=== PATIENT | male | born 1950 | race Two or more races ===

== ENCOUNTER 2021-01-25 08:00 | Outpatient (CLI) | payer OTHER | END 2021-01-25 08:05 | disposition home or self-care (01) | LOC: PPH VACUNA 08:00 | PROVIDERS: ATTEND Emergency Medicine Pediatric Emergency Medicine | DX: Z23 Encounter for immunization (principal) ==

== ENCOUNTER 2021-03-01 08:59 | Emergency (ER) | payer OTHER ==
[~2021-03-01] VITALS: Ht 167.6 cm; Wt 76.7 kg
[2021-03-01] MEDS ORDERED: RAMIPRIL5 MG PO (09:14)
[2021-03-01] MEDS ORDERED: MONDOXYNE NL100 MG PO (12:41)
[2021-03-01] MEDS ORDERED: HIBICLENS118 ML TOP (12:41)
== END 2021-03-01 13:17 | disposition home or self-care (01) ==
LOC: ER 08:59
DX: L02.211 Cutaneous abscess of abdominal wall (principal); L03.311 Cellulitis of abdominal wall; T78.49XA Other allergy, initial encounter; S30.861A Insect bite (nonvenomous) of abdominal wall, initial encounter; B95.61 Methicillin susceptible Staphylococcus aureus infection as the cause of diseases classified elsewhere; B96.89 Other specified bacterial agents as the cause of diseases classified elsewhere; W57.XXXA Bitten or stung by nonvenomous insect and other nonvenomous arthropods, initial encounter; Y93.89 Activity, other specified; Y92.89 Other specified places as the place of occurrence of the external cause; Y99.8 Other external cause status

== ENCOUNTER 2022-06-29 06:43 | Outpatient (CLI) | payer OTHER ==
[~2022-06-29 06:43] MED LIST: CIPRO500 MG PO; DICLOFENAC POTA50 MG PO; HIBICLENS118 ML TOP; MONDOXYNE NL100 MG PO; PROTONIX40 MG PO; RAMIPRIL5 MG PO
== END 2022-06-29 06:49 | disposition home or self-care (01) ==
LOC: LAB 06:43
PROVIDERS: ATTEND General Practice
DX: E78.2 Mixed hyperlipidemia (principal); N42.9 Disorder of prostate, unspecified; E21.1 Secondary hyperparathyroidism, not elsewhere classified; N39.9 Disorder of urinary system, unspecified; E11.69 Type 2 diabetes mellitus with other specified complication; N18.30 Chronic kidney disease, stage 3 unspecified; Z12.13 Encounter for screening for malignant neoplasm of small intestine; Z12.11 Encounter for screening for malignant neoplasm of colon

== ENCOUNTER → 2022-07-01 10:08 | Outpatient (CLI) | payer OTHER | END | disposition home or self-care (01) | LOC: LAB 10:08 | PROVIDERS: ATTEND General Practice | DX: Z12.11 Encounter for screening for malignant neoplasm of colon (principal); E78.2 Mixed hyperlipidemia; Z12.13 Encounter for screening for malignant neoplasm of small intestine; N42.9 Disorder of prostate, unspecified; E21.1 Secondary hyperparathyroidism, not elsewhere classified; N18.30 Chronic kidney disease, stage 3 unspecified; E11.69 Type 2 diabetes mellitus with other specified complication; N39.9 Disorder of urinary system, unspecified ==

== ENCOUNTER 2023-01-22 15:12 | Emergency (ER) | payer OTHER ==
[~2023-01-22] VITALS: Ht 167.6 cm; Wt 68.0 kg
[2023-01-22 17:44] LABS: HEMATOCRIT 42.7 % (39.0-48.0); HEMOGLOBIN 15.1 g/dL (13-16.00); MEAN CELL VOLUME 94.5 fL (80.0-100.00); MEAN CORPUSCULAR HEMOGLOBIN 33.3 pg (27.00-32.0); MEAN CORPUSCULAR HGB CONC 35.3 g/dl (32.0-36.0); PLATELET COUNT 139 K/uL (150-450); RED BLOOD COUNT 4.52 M/uL (4.00-6.00); RED CELL DISTRIBUTION WIDTH 14.2 % (11.5-14.5)
[2023-01-22 18:13] LABS: CALCIUM 9.2 mg/dL (8.5-10.1); CREATININE SERUM 0.9 mg/dL (0.70-1.30); GFR 83.18; POTASSIUM 4.52 mEq/L (3.5-5.1)
== END 2023-01-22 18:40 | disposition home or self-care (01) ==
LOC: ER 15:12
PROVIDERS: General Practice
DX: M54.9 Dorsalgia, unspecified (principal)
CPT/HCPCS: 36415; 96372; 99283; J1885

== ENCOUNTER → 2023-05-13 | Emergency (ER) | payer OTHER ==
[~2023-05-13] VITALS: Ht 165.1 cm; Wt 74.4 kg
== END | disposition home or self-care (01) ==
LOC: ER 12:27
DX: S00.552A Superficial foreign body of oral cavity, initial encounter (principal); I10 Essential (primary) hypertension; K63.5 Polyp of colon

== ENCOUNTER 2024-01-31 08:54 | Outpatient (CLI) | payer OTHER | END 2024-01-31 09:01 | disposition home or self-care (01) | LOC: MRI 08:54 | PROVIDERS: ATTEND Psychiatry & Neurology Neurology | DX: G30.9 Alzheimer's disease, unspecified (principal) | CPT/HCPCS: 70551 ==

== ENCOUNTER 2025-04-03 18:30 | Emergency (ER) | payer OTHER ==
[~2025-04-03] VITALS: Ht 167.6 cm; Wt 68.9 kg
[2025-04-03] MEDS ORDERED: ARICEPT5 MG (18:37)
[2025-04-03] MEDS ORDERED: TRAMADOL HCL 50 MG TABLET PO STA ×2 (18:45→23:27)
[2025-04-03] MEDS ORDERED: FAMOTIDINE/PF 20 MG/2 ML VIAL IV STA (18:46)
[2025-04-03] MEDS ORDERED: ONDANSETRON HCL 2 MG/ML VIAL IV STA (18:46)
[2025-04-03] MEDS ORDERED: FAMOTIDINE/PF 20 MG/2 ML VIAL ONE (18:55)
[2025-04-03] MEDS ORDERED: ONDANSETRON HCL 2 MG/ML VIAL ONE (18:55)
[2025-04-03 19:12] LABS: BASO % 0.3 % (0.1-1.2); EOS # 0.13 (0.04-0.54); EOS % 1.3 % (0.7-7.0); LYMPH # 1.13 (1.18-3.74); LYMPH % 11.4 % (19.3-53.1); MEAN PLATELET VOLUME 9.00 fl (9.4-12.4); MONO # 0.52 (0.24-0.82); MONO % 5.3 % (4.7-12.5); NEUT # 8.04 (1.56-6.13); NEUT % 81.3 % (34.0-71.1); RED CELL DISTRIBUTION WIDTH 12.4 % (11.6-14.4)
[2025-04-03 19:48] LABS: BUN CREA RATIO 17.0 (7.0-25.0); CREATININE SERUM 0.88 mg/dL (0.70-1.30); GFR 84.65; GLUCOSE FASTING 132.0 mg/dL (65-100); OSMOLALITY SERUM 288.0 MOSM/KG (275-295)
[2025-04-03] MEDS ORDERED: TAMSULOSIN HCL 0.4 MG CAP PO STA (20:08)
[2025-04-03] MEDS ORDERED: TAMSULOSIN HCL 0.4 MG CAP PO ONE (20:46)
[2025-04-03 21:22] LABS: URINE APPEARANCE Cloudy; URINE BILIRRUBIN Negative (NEGATIVE); URINE BLOOD Large; URINE COLOR Dark Yellow; URINE GLUCOSE Negative (NEGATIVE); URINE KETONE Trace (NEGATIVE); URINE LEUKOCYTE Trace; URINE NITRATE Negative; URINE PROTEIN 30 (NEGATIVE); URINE UROBILINOGEN 1.0 E.U./dl
[2025-04-03 21:26] LABS: URINE BACTERIA 24.0 uL (0.0-1933); URINE EPITHELIAL CELLS 5.8 uL (0.0-38.8); URINE RBC 536.9 uL (0.0-20.8); URINE WBC 16.7 uL (0.0-23.2)
[2025-04-03 21:29] LABS: URINE CAST 0.99 uL (0.0-1.40)
[2025-04-03] MEDS ORDERED: TRAMADOL HCL50 MG PO (23:26)
[2025-04-03] MEDS ORDERED: DUI500 PO (23:26)
[2025-04-03] MEDS ORDERED: TAMS0.4C PO (23:26)
== END 2025-04-04 03:17 | disposition home or self-care (01) ==
LOC: ER 18:31
PROVIDERS: General Practice
DX: N20.1 Calculus of ureter (principal); M25.552 Pain in left hip; R11.2 Nausea with vomiting, unspecified; M54.59 Other low back pain; I10 Essential (primary) hypertension; Z88.6 Allergy status to analgesic agent
CPT/HCPCS: 36415; 74176; 96365; 99284; J2405; J3490